=== PATIENT | male | born 1950 | race Caucasian/White ===

== ENCOUNTER 2020-09-08 08:34 | Day surgery (SDC) | payer MEDICARE ==
[2020-08-30 16:47] LABS: BASOPHILS # (AUTO) 0.1 X10'3 (0-0.2); EOSINOPHILS # (AUTO) 0.7 X10'3 (0-0.9); EOSINOPHILS % (AUTO) 7.2 % (0-6); LYMPHOCYTES # (AUTO) 2.3 X10'3 (1.1-4.8); LYMPHOCYTES % (AUTO) 23.8 % (21-51); MEAN CORPUSCULAR HEMOGLOBIN 32.1 PG (27.0-31.0); MEAN CORPUSCULAR HGB CONC 33.4 g/dL (33.0-36.5); MEAN PLATELET VOLUME 8.5 FL (7.4-10.4); MONOCYTES # (AUTO) 1.1 X10'3 (0-0.9); MONOCYTES % (AUTO) 11.4 % (2-12); NEUTROPHILS # (AUTO) 5.4 X10'3 (1.8-7.7); NEUTROPHILS % (AUTO) 56.6 % (42-75); PRE OP HEMATOCRIT 42.4 % (42.0-52.0); PRE OP HEMOGLOBIN 14.2 g/dL (14.0-17.9); PRE OP PLATELET COUNT 311 X10'3 (140-440); RED BLOOD COUNT 4.42 X10'6 (4.70-6.10); RED CELL DISTRIBUTION WIDTH 13.5 % (11.5-14.5)
[2020-08-30 16:57] LABS: ALBUMIN 3.7 G/DL (3.4-5.0); ALKALINE PHOSPHATASE 41 IU/L (46-116); BLOOD UREA NITROGEN 26 MG/DL (7-18); BUN/CREATININE RATIO 20.6 (5.4-32.0); CALCIUM 9.3 MG/DL (8.5-10.1); CHLORIDE 107 MMOL/L (99-107); CREATININE 1.26 MG/DL (0.60-1.10); PRE OP ALT 35 U/L (30-65); PRE OP ANION GAP 9 (8-16); PRE OP AST 16 U/L (10-37); PRE OP BILIRUB, TOTAL 0.2 MG/DL (0.0-1.0); PRE OP GLUCOSE 108 MG/DL (70-104); PRE OP POTASSIUM 4.1 MMOL/L (3.4-5.1); PRE OP SODIUM 143 MMOL/L (135-145); TOTAL CARBON DIOXIDE 26.8 MMOL/L (24-32); TOTAL PROTEIN 7.3 G/DL (6.4-8.2); eGFR 57 ML/MIN
[~2020-09-08] VITALS: Ht 175.3 cm; Wt 93.0 kg
[2020-09-08] VITALS (9 sets, daily range): BP systolic 111–133; BP diastolic 71–87
[~2020-09-08 08:34] MED LIST: ASCO500C18 PO; ASPI-842 PO; BIMA2.5D OP; BRIM5DRO2 OP; BUPIVAcaine/PF 2.5mg/ml (0.25%) 10ml vial ONE; GLUC-95 PO; MULT-1085 PO; OMEG-79 PO; OSC500T PO; ROSU20TA31 PO; SAW450CA7 PO; UBID100C16 PO; ceFAZolin 2gm in dextrose, iso 50 ML IV ONE; famotidine 20mg tablet PO ONE; ringers solution, lacted 1,000 ML IV SCH
[2020-09-08] MEDS ORDERED: ringers solution, lacted 1,000 ML IV SCH (08:35)
[2020-09-08] MEDS ORDERED: morphine 4 MG/ML inj SYRINge IV PRN (08:35)
[2020-09-08] MEDS ORDERED: ondansetron/PF 4mg/2ml inj IV PRN (08:35)
[2020-09-08] MEDS ORDERED: morphine 2 MG/ML inj. syringe IV PRN (08:35)
[2020-09-08] MEDS ORDERED: labetalol 20mg/4ml (5mg/ml) syringe IV PRN (08:35)
[2020-09-08] MEDS ORDERED: hydrALAZINE 20mg/ml inj. IV PRN (08:35)
[2020-09-08] MEDS ORDERED: fentaNYL/PF 50MCG/1 ML 2ML syringe IV PRN ×2 (08:35)
[2020-09-08] MEDS ORDERED: LIDOcaine 0.5% (5mg/ml) 50ml vial ONE (10:34)
[2020-09-08] MEDS ORDERED: MIDAZolam 5mg/5ml vial ONE (10:53)
[2020-09-08] MEDS ORDERED: fentaNYL/PF 50MCG/1 ML 2ML syringe ONE (10:53)
--- NOTE | 2020-09-08 11:12 | NUR ---
Received from OR via [facility] , accompanied by Anesthesiologist DR JOHN and report given by Anesthesiologist. PT DROWSY, DENIES PAIN, LEFT HAND/WRIST/FOREARM W/BIAS WRAP COVERING INCISION/DRSG CDI. 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 Addendum: 09/08/20 at 1155 by Anastasia Paula RN Amended: Links added.
--- NOTE | 2020-09-08 12:42 | NUR ---
PT UP AND ABLE TO AMBULATE SAFELY, D/C INSTRUCTIONS GIVEN AND GONE OVER W/PT WHO VERBALIZED UNDERSTANDING, PT D/CD TO HOME VIA W/C TO PRIVATE VEHICLE W/O INCIDENT. Addendum: 09/08/20 at 1256 by Anastasia Paula RN Amended: Links added.
== END 2020-09-08 12:42 | disposition home or self-care (01) ==
LOC: PAS 08:34
PROVIDERS: ATTEND Orthopaedic Surgery Hand Surgery
DX: G56.02 Carpal tunnel syndrome, left upper limb (principal); E66.9 Obesity, unspecified; Z68.31 Body mass index [BMI] 31.0-31.9, adult; G47.30 Sleep apnea, unspecified; M19.90 Unspecified osteoarthritis, unspecified site; H40.9 Unspecified glaucoma; Z98.890 Other specified postprocedural states; Z79.82 Long term (current) use of aspirin; Z88.2 Allergy status to sulfonamides; Z72.89 Other problems related to lifestyle; Z20.822 Contact with and (suspected) exposure to COVID-19; Z79.899 Other long term (current) drug therapy
CPT/HCPCS: 36415; 64721; 80053; 82948; 85025; 87635; 93005; A6222; J2001; J2250; J3010; J3490; A4215; A6449; J7120